=== PATIENT | male | born 1965 | race Caucasian/White ===

== ENCOUNTER 2020-03-15 17:55 | Emergency (ER) | payer BC ==
[2020-03-15] MEDS ORDERED: Morphine 2 MG/ML Syringe IVPUSH ONE (18:04)
[2020-03-15] MEDS ORDERED: Heparin Sodium 5,000 Units/ML Vial IVPUSH ONE (18:10)
[2020-03-15] MEDS ORDERED: Heparin Sodium 5,000 Units/ML Vial ONE (18:10)
--- NOTE | 2020-03-15 18:26 | EDM.PDOC ---
ED HPI GENERAL MEDICAL PROBLEM - General Chief Complaint: Chest Pain Stated Complaint: AMBULANCE Time Seen by Provider: 03/15/20 17:55 Source of Information: Reports: Patient, EMS History Limitations: Reports: No Limitations - History of Present Illness INITIAL COMMENTS - FREE TEXT/NARRATIVE: This 54 yo male patient was brought to the ED by [facility] due to chest pain and extremity numbness. The patient reports his current symptoms started between 1715 and 1730 tonight. The patient reports he had some chest pain this morning that went away on its own. The patient reports he has been seen in [place] 3 times in the past week and a half with similar symptoms. The patient reports he was supposed to be scheduled for an EGD this week. The patient was advised that his problem was in his esophagus. Onset: Today Duration: Constant Location: Reports: Chest Quality: Reports: Ache, Pressure Severity: Severe Improves with: Reports: None Worsens with: Reports: None Context: Reports: Other Associated Symptoms: Reports: Chest Pain Chest Pain Score (Numeric/FACES): 6 - Related Data Allergies Allergy/AdvReac Type Severity Reaction Status Date / Time amoxicillin Allergy Hives Verified 03/15/20 18:01 clavulanic acid Allergy Hives Verified 03/15/20 18:01 Home Meds: Home Meds . [No Known Home Meds] 03/15/20 [History] Past Medical History Cardiovascular History: Reports: Hypertension - Past Surgical History GI Surgical History: Reports: Other (See Below) Other GI Surgeries/Procedures: Reports colon removal surgeru Social & Family History - Tobacco Use Smoking Status *Q: Current Every Day Smoker Years of Tobacco use: 30 Packs/Tins Daily: 0.5 - Caffeine Use Caffeine Use: Reports: None - Recreational Drug Use Recreational Drug Use: No ED ROS GENERAL - Review of Systems Review Of Systems: Comprehensive ROS is negative, except as noted in HPI. ED EXAM, GENERAL - Physical Exam Exam: See Below Exam Limited By: No Limitations General Appearance: Alert, WD/WN, Severe Distress Eye Exam: Bilateral Eye: EOMI, Normal Inspection, PERRL Ears: Normal External Exam, Normal Canal, Hearing Grossly Normal, Normal TMs Nose: Normal Inspection, Normal Mucosa, No Blood Throat/Mouth: Normal Inspection, Normal Lips, Normal Teeth, Normal Gums, Normal Oropharynx, Normal Voice, No Airway Compromise Head: Atraumatic, Normocephalic Neck: Normal Inspection, Supple, Non-Tender, Full Range of Motion Respiratory/Chest: No Respiratory Distress, Lungs Clear, Normal Breath Sounds, No Accessory Muscle Use, Chest Non-Tender Cardiovascular: Normal Peripheral Pulses, Regular Rate, Rhythm, No Edema, No Gallop, No JVD, No Murmur, No Rub GI/Abdominal: Normal Bowel Sounds, Soft, Non-Tender, No Organomegaly, No Distention, No Abnormal Bruit, No Mass (Male) Exam: Deferred Rectal (Males) Exam: Deferred Back Exam: Normal Inspection, Full Range of Motion, NT Extremities: Normal Inspection, Normal Range of Motion, Non-Tender, Normal Capillary Refill, No Pedal Edema Neurological: Alert, Oriented, CN II-XII Intact, Normal Cognition, Normal Gait, Normal Reflexes, No Motor/Sensory Deficits Psychiatric: Normal Affect, Normal Mood Skin Exam: Warm, Dry, Intact, Normal Color, No Rash Lymphatic: No Adenopathy Course - Vital Signs Last Recorded V/S: Last Vital Signs Temp 36.4 C 03/15/20 17:57 Pulse 72 03/15/20 17:57 Resp 20 03/15/20 17:57 BP 166/75 H 03/15/20 17:57 Pulse Ox 100 03/15/20 17:57 - Orders/Labs/Meds Orders: Active Orders 24 hr Category Date Time Status EKG Documentation Completion [RC] STAT Care 03/15/20 17:56 Ordered Chest 1V Frontal [CR] Urgent Exams 03/15/20 17:57 Ordered COMPREHENSIVE METABOLIC PN,CMP [CHEM] Stat Lab 03/15/20 17:56 Ordered TROPONIN I [CHEM] Stat Lab 03/15/20 17:56 Ordered Labs: Laboratory Tests 03/15/20 Range/Units 18:02 WBC 15.8 H (5.0-10.0) 10^3/uL RBC 5.42 (4.6-6.2) 10^6/uL Hgb 16.7 (14.0-18.0) g/dL Hct 47.5 (40.0-54.0) % MCV 87.6 (80-100) fL MCH 30.8 (27.0-34.0) pg MCHC 35.2 H (33.0-35.0) g/dL Plt Count 376 (150-450) 10^3/uL Neut % (Auto) 68.0 (42.2-75.2) % Lymph % (Auto) 22.4 (20.5-50.1) % [place] % (Auto) 8.3 H (2-8) % Eos % (Auto) 1.0 (1.0-3.0) % Baso % (Auto) 0.3 (0.0-1.0) % Meds: Medications Discontinued Medications Generic Name Dose Route Start Last Admin Trade Name Kandy PRN Reason Stop Dose Admin Heparin Sodium (Porcine) 4,000 units 03/15/20 18:10 03/15/20 18:13 Heparin Sodium IVPUSH 03/15/20 18:11 4,000 units .BOLUS ONE Administration Heparin Sodium (Porcine) Confirm 03/15/20 18:10 03/15/20 18:14 Heparin Sodium Administered 03/15/20 18:11 Not Given Dose 5,000 units .ROUTE .STK-MED ONE Morphine Sulfate 2 mg 03/15/20 18:04 03/15/20 18:10 Morphine IVPUSH 03/15/20 18:05 2 mg ONETIME ONE Administration Departure - Departure Time of Disposition: 18:28 Disposition: DC/Tfer to Acute Hospital 02 Reason for Transfer *Q: Other Condition: Critical Clinical Impression: STEMI (ST elevation myocardial infarction) Qualifiers: Involved coronary artery: unspecified coronary artery Qualified Code(s): I21.3 - ST elevation (STEMI) myocardial infarction of unspecified site Forms: Interfacility Transfer EMTALA Care Plan Goals: Discussed the history and EKG results with Dr. Art (Cardiology). Dr. Art accepted the patient for continued evaluation and management. The patient was given Heparin (4000 units) bolus while in the ED under the direction of Dr. Art. The patient is being transported by [facility]. Sepsis Event Note - Evaluation Sepsis Screening Result: No Definite Risk - Focused Exam Vital Signs: Vital Signs Temp Pulse Resp BP Pulse Ox 03/15/20 17:57 36.4 C 72 20 166/75 H 100 Date Exam was Performed: 03/15/20 Time Exam was Performed: 18:16 - My Orders Last 24 Hours: My Active Orders 03/15/20 17:56 EKG Documentation Completion [RC] STAT COMPREHENSIVE METABOLIC PN,CMP [CHEM] Stat TROPONIN I [CHEM] Stat 03/15/20 17:57 Chest 1V Frontal [CR] Urgent - Assessment/Plan Last 24 Hours: My Active Orders 03/15/20 17:56 EKG Documentation Completion [RC] STAT COMPREHENSIVE METABOLIC PN,CMP [CHEM] Stat TROPONIN I [CHEM] Stat 03/15/20 17:57 Chest 1V Frontal [CR] Urgent
[2020-03-15 18:30] LABS: CHLORIDE,CL 97 mmol/L (98-107); SODIUM,NA 137 mmol/L (136-145)
== END 2020-03-15 18:35 ==
LOC: DL.ED 17:55
DX: I21.3 ST elevation (STEMI) myocardial infarction of unspecified site (principal); I10 Essential (primary) hypertension; F17.210 Nicotine dependence, cigarettes, uncomplicated; Z88.1 Allergy status to other antibiotic agents
CPT/HCPCS: 36415; 71045; 80053; 84484; 85025; 93005; 96374; 96375; 99285; J1644; J2270

== ENCOUNTER 2020-11-01 12:12 | Emergency (ER) | payer BC ==
--- NOTE | 2020-11-01 12:50 | EDM.PDOC ---
Scribed by Valerie Alves 11/01/20 1249 for Constantine Shah MD ED HPI GENERAL MEDICAL PROBLEM - General Chief Complaint: Skin Complaint Stated Complaint: LEFT THUMB LACERATION Time Seen by Provider: 11/01/20 12:35 Source of Information: Reports: Patient, RN, RN Notes Reviewed History Limitations: Reports: No Limitations - History of Present Illness INITIAL COMMENTS - FREE TEXT/NARRATIVE: Patient presents to ED by POV with c/o a cut to his left thumb on an ice auger. No other injuries. Tetanus vaccine is up to date per pt. Onset: Today, Sudden Duration: Constant Location: Reports: Upper Extremity, Left Quality: Reports: Ache Severity: Mild Improves with: Reports: None Worsens with: Reports: None - Related Data Allergies Allergy/AdvReac Type Severity Reaction Status Date / Time amoxicillin Allergy Hives Verified 03/15/20 18:01 clavulanic acid Allergy Hives Verified 03/15/20 18:01 Home Meds: Home Meds . [No Known Home Meds] 03/15/20 [History] Past Medical History Cardiovascular History: Reports: Hypertension - Past Surgical History GI Surgical History: Reports: Other (See Below) Other GI Surgeries/Procedures: Reports colon removal surgeru Social & Family History - Family History Family Medical History: No Pertinent Family History - Caffeine Use Caffeine Use: Reports: None ED ROS GENERAL - Review of Systems Review Of Systems: Comprehensive ROS is negative, except as noted in HPI. ED EXAM, SKIN/RASH Exam: See Below Exam Limited By: No Limitations General Appearance: Alert, WD/WN, No Apparent Distress Head: Atraumatic, Normocephalic Respiratory/Chest: No Respiratory Distress Cardiovascular: Normal Peripheral Pulses Back Exam: Full Range of Motion Extremities: Other (Left thumb pad has a 1cm "U" shaped superficial flap laceration.) Neurological: Alert, Oriented, No Motor/Sensory Deficits Psychiatric: Normal Mood Skin: Warm, Dry Course - Vital Signs Last Recorded V/S: Last Vital Signs Temp 97.9 F 11/01/20 12:41 Pulse 106 H 11/01/20 12:41 Resp 18 11/01/20 12:41 BP 153/95 H 11/01/20 12:41 Pulse Ox 98 11/01/20 12:41 - Orders/Labs/Meds Orders: Active Orders 24 hr Category Date Time Status Steri Strips Application [OM.PC] Routine Oth 11/01/20 12:44 Ordered Departure - Departure Time of Disposition: 12:48 Disposition: Home, Self-Care 01 Condition: Good Clinical Impression: Flap laceration of skin Laceration of left thumb Qualifiers: Encounter type: initial encounter Damage to nail status: without damage Foreign body presence: without foreign body Qualified Code(s): S61.012A - Laceration without foreign body of left thumb without damage to nail, initial encounter - Discharge Information *PRESCRIPTION DRUG MONITORING PROGRAM REVIEWED*: Not Applicable *COPY OF PRESCRIPTION DRUG MONITORING REPORT IN PATIENT X[facility]: Not Applicable Instructions: Sutures, [place], or Adhesive Wound Closure Forms: ED Department Discharge Additional Instructions: Keep the left thumb wound clean and dry. Sepsis Event Note (ED) - Focused Exam Vital Signs: Vital Signs Temp Pulse Resp BP Pulse Ox 11/01/20 12:41 97.9 F 106 H 18 153/95 H 98 - My Orders Last 24 Hours: My Active Orders 11/01/20 12:44 Steri Strips Application [OM.PC] Routine - Assessment/Plan Last 24 Hours: My Active Orders 11/01/20 12:44 Steri Strips Application [OM.PC] Routine I have read and agree with the documentation that has been completed regarding this visit. By signing this record, I attest that the documentation was completed in my physical presence and is an accurate record of the encounter.
== END 2020-11-01 13:05 | disposition home or self-care (01) ==
LOC: DL.ED 12:12
DX: S61.012A Laceration without foreign body of left thumb without damage to nail, initial encounter (principal); I10 Essential (primary) hypertension; Z88.0 Allergy status to penicillin; W26.8XXA Contact with other sharp object(s), not elsewhere classified, initial encounter
CPT/HCPCS: 99282